=== PATIENT | male | born 1970 | race Caucasian/White ===

== ENCOUNTER → 2018-05-28 | Outpatient (CLI) | payer OTHER ==
[~2018-05-28] VITALS: Ht 172.7 cm; Wt 92.3 kg
[~2018-05-28] MED LIST: AMLO10TA8 PO; LANS30CA PO; LOSA1TAB22 PO; MELA1TAB15 PO; ZOLP12.54 PO
[2018-05-28 13:03] LABS: ALBUMIN 4.6 g/dL (3.4-5.0); ANION GAP 7 mmol/L (5-15); CALCIUM 9.3 mg/dL (8.5-10.1); CHLORIDE 102 mmol/L (98-107)
[2018-05-28 13:07] LABS: ALANINE AMINOTRANSFERASE 37 U/L (12-78); ALKALINE PHOSPHATASE 63 U/L (45-117); BILIRUBIN,TOTAL 1.3 mg/dL (0.2-1.0); CREATININE 1.21 mg/dL (0.7-1.3)
== END | disposition home or self-care (01) ==
LOC: RAD 08:00 → EDSTATUS 05-29 13:00
PROVIDERS: ATTEND Otolaryngology
DX: C09.9 Malignant neoplasm of tonsil, unspecified (principal); Z53.9 Procedure and treatment not carried out, unspecified reason
CPT/HCPCS: 36415; 80053